=== PATIENT | male | born 1980 | race African-American/Black ===

== ENCOUNTER 2020-10-09 02:11 | Observation (INO) ==
[2020-10-09] MEDS ORDERED: ONDANSETRON 4 MG/2 ML VIAL IV PRN (03:57)
[2020-10-09] MEDS ORDERED: ACETAMINOPHEN 325 MG TABLET PO PRN (03:57)
[2020-10-09 07:08] LABS: Risk Ratio 3.17; VLDL Cholesterol 10.8 MG/DL
[2020-10-09 07:14] LABS: Calcium 8.6 MG/DL (8.5-10.1); Potassium 3.4 MMOL/L (3.5-5.1); Thyroid Stimulating Hormone 1.08 uIU/ml (0.358-3.74)
[2020-10-09 08:33] LABS: Barbiturates Screen,Urine Negative (Negative); Benzodiazepines Screen,Urine Negative (Negative); Cannabinoid Screen,Urine Negative (Negative); Opiate Screen,Urine Negative (Negative); Phencyclidine Screen,Urine Negative (Negative)
[2020-10-09] MEDS ORDERED: OLMESARTAN 20 MG TABLET PO SCH (09:00)
[2020-10-09] MEDS ORDERED: APIXABAN 5 MG TABLET PO SCH (09:00)
[2020-10-09] MEDS ORDERED: NEBIVOLOL 10 MG TABLET PO SCH (09:00)
[2020-10-09] MEDS ORDERED: PANTOPRAZOLE 40 MG TABLET PO SCH (09:00)
[2020-10-09] MEDS ORDERED: POTASSIUM CHLORIDE 20 MEQ TABLET PO ONE (10:33)
[2020-10-09 12:21] VITALS: BP 170/101
[2020-10-09 12:28] LABS: Basophils % 0.4 % (0.0-0.8); Eosinophils # 0.3 10*3/uL (0.0-0.87); Hematocrit 42.7 VOL% (42.0-52.0); Hemoglobin 13.8 GM/DL (14.0-18.0); Immature Granulocytes % 0.2 %; Immature Granulocytes Absolute 0.02 #; Lymphocytes # 2.2 10*3/uL (1.4-4.0); Lymphocytes % 23.1 % (21.2-54.2); Mean Corpuscular HGB Conc 32.3 GM/DL (32-36); Mean Corpuscular Volume 85.6 FL (87-102); Mean Platelet Volume 9.3 FL (9.6-12.0); Monocytes % 10.2 % (1.7-12.7); Neutrophils % 63.1 % (38.7-73.9); Platelet Count 299 T/CUMM (130-400); Red Blood Count 4.99 MC/CUMM (3.8-5.5); Red Cell Distribution Width 14.1 % (9.3-17.3); White Blood Count 9.4 T/CUMM (4-12)
== END 2020-10-09 14:30 | disposition home health service (06) ==
LOC: N.ED 02:11 → N.EDINP 02:11 → N.TELEN 08:00
PROVIDERS: ADMIT Hospitalist; ATTEND Hospitalist